=== PATIENT | male | born 1945 | race Caucasian/White ===

== ENCOUNTER 2020-07-30 09:53 | Emergency (ER) | payer OTHER, BC ==
[2020-07-30 10:05] VITALS: BP 152/75; PULSE 63; TEMP 98.7; BMI 33.6
--- NOTE | 2020-07-30 10:41 | PDOC ---
History of Present Illness - General Chief Complaint: Edema Stated Complaint: SWOLLEN TESTICLES Time Seen by Provider: 07/30/20 10:21 History Source: Patient, Old Records Exam Limitations: No Limitations - History of Present Illness Initial Comments: 07/30/20 10:35 Alcon Arriaga is an otherwise healthy 75M presenting with hydrocele. Has had PMH hydrocele in the past, was given some sort of medicine by his PMD Dr. Aparicio a year ago and it went away. 3 weeks ago was lifting air conditioner and had recurrence, has swollen up but has stayed consistent size, non-tender. Was seen by Dr. Aparicio, referred for scrotal US, 06/23/20 shows L>R hydrocele. Has appointment with Dr. Moses in 2 weeks. No chest pain, cardiac PMH, SOB, abd pain, N/V/C/D, no urinary symptoms. Past History - Medical History Allergies/Adverse Reactions: Allergies Allergy/AdvReac Type Severity Reaction Status Date / Time No Known Allergies Allergy Verified 07/30/20 10:00 Home Medications: Ambulatory Orders NK [No Known Home Medication] 07/30/20 COPD: No - Psycho-Social/Smoking History Smoking History: Never smoked Have you smoked in the past 12 months: No - Substance Abuse Hx (Audit-C & DAST Scrn) How often the patient has a drink containing alcohol: Never Score: In Men: 4 or > Positive; In Women: 3 or > Positive: 0 Screen Result (Pos requires Nsg. Audit-10AR): Negative In the last yr the pt used illegal drug/Rx for NonMed reason: No Score: Yes response is considered Positive: 0 Screen Result (Positive result requires Nsg. DAST-10): Negative Review of Systems - Review of Systems Able to Perform ROS?: Yes Constitutional: No: Symptoms Reported HEENTM: No: Symptoms Reported Respiratory: No: Symptoms reported Cardiac (ROS): No: Symptoms Reported ABD/GI: No: Symptoms Reported : Yes: Testicular Swelling. No: Burning, Dysuria, Discharge, Frequency, Flank Pain, Hematuria, Testicular Mass Musculoskeletal: No: Symptoms Reported Integumentary: No: Symptoms Reported Neurological: No: Symptoms reported Endocrine: No: Symptoms Reported Hematologic/Lymphatic: No: Symptoms Reported All Other Systems: Reviewed and Negative *Physical Exam - Vital Signs Last Vital Signs Temp Pulse Resp BP Pulse Ox 98.7 F 63 18 152/75 98 07/30/20 10:00 07/30/20 10:00 07/30/20 10:00 07/30/20 10:00 07/30/20 10:00 - Physical Exam General Appearance: Yes: Nourished, Appropriately Dressed, Obese, Other (walking fine, in NAD, sitting in bed). No: Apparent Distress HEENT: positive: EOMI, SOM, Normal Voice, Symmetrical, Pharynx Normal. negative: Scleral Icterus (R), Scleral Icterus (L), Pharyngeal Erythema, Tonsillar Exudate, Tonsillar Erythema Neck: positive: Normal Thyroid, Supple. negative: Tender, Rigid, Lymphadenopathy (R), Lymphadenopathy (L), Tender lateral, Tender midline Respiratory/Chest: positive: Lungs Clear, Normal Breath Sounds. negative: Chest Tender, Respiratory Distress, Accessory Muscle Use, Crackles, Rales, Rhonchi, Stridor, Wheezing Cardiovascular: positive: Regular Rhythm, Regular Rate. negative: Murmur Gastrointestinal/Abdominal: positive: Normal Bowel Sounds, Flat, Soft. negative: Tender, Organomegaly, Pulsatile Mass Male Genitalia: negative: discharge, testicular tenderness, testicular mass Musculoskeletal: positive: Normal Inspection. negative: CVA Tenderness, Decreased Range of Motion, Vertebral Tenderness Extremity: positive: Normal Capillary Refill, Normal Inspection, Normal Range of Motion, Pelvis Stable. negative: Tender, Swelling, Calf Tenderness, Erythema Integumentary: positive: Normal Color, Dry, Warm Neurologic: positive: Fully Oriented, Alert, Normal Mood/Affect, Normal Response Medical Decision Making - Medical Decision Making 07/30/20 10:42 Patient presents withs known hydrocele to L testicle diagnosed by US. Exam unremarkable, non-tender, no hernia noted. VSS. Patient needs to see urologist, has appointment. No emergent need for intervention right now. Can d/c home with urology f/u. Discharge - Discharge Information Problems reviewed: Yes Clinical Impression/Diagnosis: Hydrocele Qualifiers: Hydrocele type: unspecified Qualified Code(s): N43.3 - Hydrocele, unspecified Condition: Good Disposition: HOME - Follow up/Referral Referrals: Darshan Aparicio MD [Primary Care Provider] - Rich Parker MD [Staff Physician] - Saqib Cameron MD [Staff Physician] - Berry Olvera MD [Staff Physician] - - Patient Discharge Instructions Patient Printed Discharge Instructions: DI for Hydrocele-Adult, DI for Hydrocelectomy-Adult Additional Instructions: Today you were seen for swelling in your testicle. We have examined you and there is no emergency that needs to be treated at this time. The treatment is to see a urologist and have the swelling removed, so we have given you referrals to see other urologists, but if not please see Dr. Moses in the next 2 weeks for further care. If you experience any testicle pain, difficulty breathing, pain with urination, or any other new or concerning symptoms, please return to the emergency room. - Post Discharge Activity
--- NOTE | 2020-07-30 10:44 | PDOC ---
Documentation entered by Judith Maya SCRIBE, acting as scribe for Huseyin Benites MD. Huseyin Benites MD: This documentation has been prepared by the mayraibFrancesco bishop Ana, SCRIBE, under my direction and personally reviewed by me in its entirety. I confirm that the documentation accurately reflects all work, treatment, procedures, and medical decision making performed by me. Attending Attestation - Resident Resident Name: Km Brock - ED Attending Attestation I have performed the following: I have examined & evaluated the patient, The case was reviewed & discussed with the resident, I agree w/resident's findings & plan, Exceptions are as noted - HPI HPI: 07/30/20 10:25 Patient is a 75 year old male with a significant past medical history of bilateral hydroceles presents to ED with scrotal swelling. Pt states it started a week ago. Pt was seen by his PMD, who ordered a scrotal US that confirmed hydroceles. Pt is scheduled to f/u with Dr. Moses in 2 weeks but states he does not wish to wait that long, so he came to the ED. Denies any pain. Denies any new complaints. Allergies: NKDA - Physicial Exam PE: 07/30/20 10:26 See resident exam. - Medical Decision Making 07/30/20 10:45 75 M with scrotal swelling, confirmed hydroceles on outpt US. No acute complaints. No evidence of torsion, hernia, or infectious process. - Will give new uro referral if pt wants earlier appointment Pt is well appearing, with normal vitals. Clinically stable for DC at this time. I discussed the physical exam findings, ancillary test results and final diagnos es with the patient. I answered all of the patient's questions. The patient was satisfied with the care received and felt comfortable with the discharge plan and treatment plan. The patient agrees to follow up with the primary care physician within 24-72 hours. Discharge - Discharge Information Problems reviewed: Yes Clinical Impression/Diagnosis: Hydrocele Qualifiers: Hydrocele type: unspecified Qualified Code(s): N43.3 - Hydrocele, unspecified Condition: Good Disposition: HOME - Follow up/Referral Referrals: Rich Parker MD [Staff Physician] - Darshan Aparicio MD [Primary Care Provider] - Saqib Cameron MD [Staff Physician] - Berry Olvera MD [Staff Physician] - - Patient Discharge Instructions Patient Printed Discharge Instructions: DI for Hydrocele-Adult, DI for Hydrocelectomy-Adult Additional Instructions: Today you were seen for swelling in your testicle. We have examined you and there is no emergency that needs to be treated at this time. The treatment is to see a urologist and have the swelling removed, so we have given you referrals to see other urologists, but if not please see Dr. Moses in the next 2 weeks for further care. If you experience any testicle pain, difficulty breathing, pain with urination, or any other new or concerning symptoms, please return to the emergency room. - Post Discharge Activity
== END 2020-07-30 11:00 | disposition home or self-care (01) ==
LOC: JER 09:53
DX: N43.3 Hydrocele, unspecified (principal)
CPT/HCPCS: 99283-25

== ENCOUNTER 2021-11-09 07:55 | Emergency (ER) | payer OTHER, BC ==
[2021-11-09 08:03] VITALS: BP 161/93; PULSE 87; TEMP 98.1; BMI 33.6
== END 2021-11-09 09:24 | disposition home or self-care (01) ==
LOC: JER 07:55
DX: U07.1 COVID-19 (principal); J02.9 Acute pharyngitis, unspecified
CPT/HCPCS: 87651; 99283-25

== ENCOUNTER 2024-01-16 05:10 | Day surgery (SDC) | payer OTHER, BC ==
[2024-01-04 15:57] VITALS: BMI 31.4
[2024-01-16] MEDS ORDERED: MIDAZOLAM HCL 2 MG/2 ML SINGLE DOSE VIAL ONE (09:43)
[2024-01-16] MEDS ORDERED: DEXAMETHASONE SOD PHOSPHATE 4 MG/1 ML VIAL ONE (09:43)
[2024-01-16] MEDS ORDERED: LIDOCAINE HCL/PF 2% SDV 5ML VIAL ONE (09:43)
[2024-01-16] MEDS ORDERED: ONDANSETRON 4 MG/2 ML VIAL ONE (09:43)
[2024-01-16] MEDS ORDERED: FENTANYL CITRATE/PF 50 MCG/ML VIAL ONE ×3 (09:43→16:26)
[2024-01-16] MEDS ORDERED: PROPOFOL 40 ML ONE (09:43)
[2024-01-16] MEDS ORDERED: ROCURONIUM BROMIDE 50 MG/5 ML SYRINGE ONE (10:32)
[2024-01-16] MEDS ORDERED: BUPIVACAINE HCL/PF 0.25% (2.5MG/ML) 10 ML VIAL ONE (12:00)
[2024-01-16] MEDS: ceFAZolin SODIUM 1 GM VIAL IVPB ONE (12:38)
[2024-01-16] MEDS: BUPIVACAINE HCL/PF 0.25% (2.5MG/ML) 10 ML VIAL IJ ONE (12:46)
[2024-01-16] MEDS ORDERED: GLYCOPYRROLATE 0.2 MG/1 ML VIAL ONE (14:54)
[2024-01-16] MEDS ORDERED: NEOSTIGMINE METHYLSULFATE 0.5 MG/1 ML - 10 ML MDV ONE (14:54)
[2024-01-16] MEDS ORDERED: PROPOFOL 20 ML ONE (15:09)
[2024-01-16] MEDS ORDERED: ONDANSETRON 4 MG/2 ML VIAL IVPUSH PRN (15:40)
[2024-01-16] MEDS ORDERED: LACTATED RINGERS SOLUTION 1,000 ML IV SCH (15:45)
[2024-01-16 18:20] VITALS: RESP 18
[2024-01-16 19:21] VITALS: BP 157/76; PULSE 89; TEMP 97.5
== END 2024-01-16 19:46 | disposition home or self-care (01) ==
LOC: JASU-SURG 05:10
PROVIDERS: ATTEND Surgery
PROC: 8E0W4CZ Robotic Assisted Procedure of Trunk Region, Percutaneous Endoscopic Approach (ICD-10-PCS; 2024-01-16)
PROC: 0YU64JZ Supplement Left Inguinal Region with Synthetic Substitute, Percutaneous Endoscopic Approach (ICD-10-PCS; principal; 2024-01-16 10:30)
DX: K40.30 Unilateral inguinal hernia, with obstruction, without gangrene, not specified as recurrent (principal)
CPT/HCPCS: 49650; S2900; 86850; 86900; 86901; 94760; C1781

== ENCOUNTER 2025-07-21 07:04 | Emergency (ER) | payer OTHER, BC ==
[2025-07-21 07:18] VITALS: BP 136/96; PULSE 73; RESP 18; TEMP 98.4; BMI 31.1
== END 2025-07-21 08:01 | disposition home or self-care (01) ==
LOC: JER 07:04
DX: K08.89 Other specified disorders of teeth and supporting structures (principal)
CPT/HCPCS: 99283-25